=== PATIENT | male | born 2000 | race Caucasian/White ===

== ENCOUNTER 2024-01-13 14:59 | Emergency (ER) | payer BC, SELFPAY ==
[2024-01-13 15:02] VITALS: BP 126/57
--- NOTE | 2024-01-13 15:34 | ED.MUSCINJ ---
HPI-Injury
General
Chief Complaint: Musculo-Skeletal Complaint
Source: patient
Exam Limitations: none
Time Seen by Provider: 01/13/24 15:19
Nursing documentation reviewed up to this point in time: agreed with
History of Present Illness-Injury
Is this injury a work related problem?: No
Is pt an associate of [facility]?: No
Initial Injury comments:
Patient states he was carrying a heavy box and stepped off step, felt right knee dislocate. He was seen at , danuta wrap applied, had xrays and then sent to ED to have knee drained. Brought to ED by benny obrien for eval. INjury occurred this afternoon
Past History
Past History
ED Past Medical History: None
Review of Systems
Review of Systems
Allergies reviewed?: Yes
All Other Systems: ROS reviewed and negative except as documented in HPI and ROS
Constitutional: Reports no symptoms
Musculoskeletal: Reports joint pain (pain and swelling to right knee)
Skin: Reports other (pain and swelling to right knee)
Neurological: Reports no symptoms
Psychiatric: Reports no symptoms
Musculoskeletal Injury Exam
Musculoskeletal Injury Exam
Right Anterior Knee:
Pain with Movement?: Moderate
Tender to palpation?: Moderate
Soft tissue swelling?: Moderate
External deformity and angulation?: None
Contusion?: None
Hematoma-local bleeding into tissue?: None
Strain- Sprain- Tear (Connective tissue injury)?: Moderate
Crepitus with movement?: No
Joint instability?: No
Malalignment/deformity?: No
Range of motion: Limited
Distal skin color and temperature: normal-warm & good color
Capillary Refill: normal
Normal distal neurovascular exam?: Yes
Phy Exam
General Physical Exam
General Presentation: well appearing
General age: appears stated age
General Skin: warm and dry
General Habitus: normal
General Mental: alert
Musculoskeletal Exam
Musculoskeletal Exam: neuro vasc intact and other (No evidence of tendon injury. )
Skin Exam
Skin Exam: normal color, warm/dry and no rash
Psychiatric Exam
Psychiatric Exam: normal mood/affect
*Radiology
Radiology exam reviewed: other (viewed xrays on patients phone. NO evidence of fracture)
*Pulse Oximetry
Patient hypoxic: no
*Critical Care Note
Total Time (30-74mins, 75-104mins- exclusive of procedures): Not Applicable
Update Note
Update Note:
Patient to ED for eval s/p patellar dislocation. 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 He was seen at , had xrays - no fx, placed in danuta wrap. Since this is a traumatic injury, I advised him to continue with danuta wrap, ice and knee immobilizer. Aspiration is
not indicated in this traumatic injury. WIll discharge home and he will follow up with ortho in office. He has a knee immobilizer at home which he will continue to wear until discontinued by orthopedics. DDX: patellar fracture, ligament injury
ED Attending Note
-
Portions of this chart may have been created with voice recognition software.� Occasional wrong word or��sound alike� substitutions may have occurred due to the inherent limitations of voice recognition software.
Discharge Plan
Departure
Patient Disposition: Home (Routine Discharge)
Date of Disposition: 01/13/24
Time of Disposition: 15:30
Patient with high blood pressure during this ER visit?: No
Condition: Good
Covid-19: Not Applicable
Discharge Problem:
Dislocated patella
Instructions: Knee Immobilizer (DC), Ibuprofen, RICE Therapy
Prescriptions:
No Action
(DME) inhalational spacing device [Aerochamber Mini] 1 EACH spacer
acetaminophen-codeine 1 TABLET tablet
1 tab PO Q6HPRN PRN (Reason: severe pain) Qty: 10 0RF
Referrals:
Wilder Devi MD [Active] - Call in 1-3 days for appt
Wilton Malin MD [Active] - ([facility])
Stand Alone Forms: Return to Work
Interventions
Interventions:
*Risk Screen - Suicide Last Done: 01/13/24 15:02
*General Assessment Last Done: 01/13/24 15:02
*ED COVID-19 Vaccine History Last Done: 01/13/24 15:02
ED-Musculoskeletal Assessment Last Done: 01/13/24 15:22
Discharge Date and Time
Print Language: DIVEHI
[2024-01-13 15:53] VITALS: BP 109/57
== END 2024-01-13 15:56 | disposition home or self-care (01) ==
LOC: EMR 14:59
PROVIDERS: EMERGENCY PHYSICIAN Emergency Medicine; FAMILY PHYSICIAN Family Medicine
DX: S83.004A Unspecified dislocation of right patella, initial encounter (principal); X58.XXXA Exposure to other specified factors, initial encounter
CPT/HCPCS: 99282; 29505